=== PATIENT | male | born 1980 | race Caucasian/White ===

== ENCOUNTER → 2016-05-25 | Outpatient (CLI) | payer OTHER ==
[~2016-05-25] MED LIST: IBUP600T44 PO; TRAM-10 PO
--- NOTE | 2016-05-25 18:04 | DIAGNOSTIC IMAGING REPORT ---
RIGHT WRIST 4 VIEWS HISTORY: RIGHT WRIST PAIN Right COMPARISON: None. FINDINGS: There is no fracture or dislocation. Mild dorsal soft tissue swelling. No radiopaque foreign bodies. IMPRESSION: Mild dorsal soft tissue swelling. No fractures. Electronically signed by: Venkata Lopez M.D. 05/25/2016 6:03 PM
== END | disposition home or self-care (01) ==
LOC: C.RAD 17:32
PROVIDERS: ATTEND Internal Medicine
DX: M25.531 Pain in right wrist (principal)